=== PATIENT | male | born 1940 | race Caucasian/White ===

== ENCOUNTER 2018-04-10 12:19 | Emergency (ER) | payer OTHER ==
[2018-04-10] MEDS ORDERED: fentaNYL 100 MCG/2 ML INJ IVP ONE ×2 (12:39)
--- NOTE | 2018-04-10 13:13 | EDPHY ---
General - History Smoking Status: Never smoked Time Seen by Provider: 04/10/18 12:21 Narrative: CLINICAL IMPRESSION: Closed right comminuted displaced angulated distal femur fracture ASSESSMENT/PLAN: 77-year-old male presents to the emergency department by ambulance after a ground level fall while walking on the sidewalk. Patient presents to the ED complaining only of right knee pain. He has no reproducible pain to palpation of the right hip, proximal femur, proximal tib-fib, right ankle or foot. Distal neurovascular exams are intact. Patient has had a prior ORIF of a right tibial plateau fracture 2 years ago and has had outpatient follow-up with [facility]. He has no other complaints of pain or injury and reports no closed head injury. X-ray confirms a closed right comminuted displaced angulated distal right femur fracture. I spoke with [facility] as well as [facility] and shared images with their service. Patient was stabilized in the ED, had no complaints of pain on reassessment, and had a femoral nerve block placed by Dr. Rashid. He was able to fully extend the leg after adequate analgesics and a straight leg knee brace was applied. [facility] has accepted this patient in transfer to [facility] for direct admit and probable ORIF of femur fracture later today or 1st thing tomorrow. Patient was kept NPO. Baseline labs obtained. Transfer arranged by [facility] and appropriate EMTALA forms completed. Discussed with Dr. Rashid. DIFFERENTIAL DX: Differential includes but not limited to acute fracture, strain/sprain, joint dislocation, soft tissue contusion ED PROCEDURES: Femoral nerve block placed by Dr. Rashid, please see his procedure note Procedure: Splint placement. A straight leg knee brace right leg at position of comfort by technology administrator, supervised by myself. After application of the splint I returned and re- examined the patient. The splint was adequately immobilizing the joint and distal to the splint the patient's circulation and sensation was intact. ED COURSE: 1:00 p.m.: X-rays reviewed by myself. Patient has an obvious displaced angulated distal femur fracture. Neurovascular exam remains intact. 1:05 p.m.: Discussed with [facility]. Patient has seen Dr. Akhtar with Orthopedics there in the past. He has had prior ORIF of a tibial plateau fracture on the right performed in [place]. Discussed with Dr. Paulson at [facility]. He will discussed with [facility] and call me back 1:45 p.m.: Images of patient's x-rays sent to [facility]. Awaiting call back. 1:50: pm. Call back from [facility]. Patient will need ORIF. They recommend transfer to [facility]. Patient's is very hesitant against transfer given that she is also caring for an elderly family member here. Patient however is pain-free and stable for transfer. has agreed to transfer. Femoral nerve block placed by Dr. Rashid. Patient will be placed in posterior long-leg splint in position of comfort. ACLS transport arranged by [facility]. Appropriate EMTALA forms completed. Patient is [facility]. CHIEF COMPLAINT: Right knee pain HPI: 77-year-old male with no significant reported medical history presents to the emergency department with acute right knee pain. Patient states he was getting ready to go out for a walk, slipped on the sidewalk and fell on the outer aspect of the right knee. He has had a prior ORIF to the right knee secondary to a tibial plateau fracture sustained while skiing in [place] 2 years ago. His outpatient follow-up care was done through Dr. Akhtar at [facility]. He reports no lower leg, ankle or hip pain. No reports of numbness or loss of sensation to the leg. He did not hit his head. He denies any other injury. He is not anticoagulated. He had a muffin at 11:30 a.m. This morning but has otherwise not had anything to eat or drink. PAST MEDICAL HISTORY: Prior ORIF right tibial plateau fracture, hyperlipidemia Pertinent Past Surgical History: Prior orthopedic surgery Social History: Here with his , Pete patient REVIEW OF SYSTEMS: All other systems negative Constitutional: No fever, no chills Musculoskeletal: No deformity, + joint pain Skin: No rashes, color change or open wounds. Neurological: No sensory loss or weakness. No headache PHYSICAL EXAM: General Appearance: Alert, oriented, appropriate for age, cooperative, non- toxic appearing, VSS, no hypoxia. Appears uncomfortable, laying on his left side on the EMS gurney, c/o right knee pain Neurological: Alert and oriented x 3, normal sensation of extremities, no focal neurological deficits. No palpable scalp deformity, contusion or step- off. No hemotympanum, Nicholas sign or suggestion basilar skull fracture. Skin: Warm, dry, no rashes, no nodules on palpation. Musculoskeletal: Reproducible pain to the lateral aspect of the right knee. Pain with attempts to fully extend the knee. No reproducible pain along the greater trochanter, right tib-fib, right ankle or foot. Distal neurovascular exam is intact. No open wounds. No other injuries to extremities appreciated. No reproducible midline C-spine, thoracic or lumbar back pain. Cardiac: Regular rate and rhythm, no arrhythmia Respiratory: Lung sounds clear bilaterally, no wheezing rhonchi or rales. No chest wall tenderness or rib pain to palpation. MEDICAL DECISION MAKING: Patient was seen independently. Secondary supervising physician at time of evaluation was Dr. Rashid . Diagnosis: Closed, comminuted, angulated, displaced right distal femur fracture. New, requires workup Summary: See assessment and plan for summary of ED visit Independent visualization of images, tracing, or specimens yes. Decision to obtain medical records or history from someone other than the patient: Patient's white Review / Summarize previous medical records: None available Discussed patient with another provider: [facility], [facility] Patient Progress: Stable . (Kobe Cunha) Procedures: Nerve block: I performed a right femoral nerve bundle block with ultrasound guidance. 12 cc of 1% lidocaine instilled. No complications observed, no bleeding. Procedure performed by me. (Chinmay Rashid) - Objective Vital Signs: Initial Vital Signs Heart Rate 59 L 04/10/18 12:29 Respiratory Rate 18 04/10/18 12:29 Blood Pressure 178/84 H 04/10/18 12:29 O2 Sat (%) 94 04/10/18 12:29 O2 Delivery Mode Nasal Cannula O2 (L/minute) 2 Allergies/Adverse Reactions: No Known Allergies Allergy (Unverified 04/10/18 12:35) Home Medications: Medication Instructions Recorded Lipitor 04/10/18 Laboratory Results: Laboratory Results 04/10/18 12:35 04/10/18 12:35 Medications Given: Discontinued Medications Fentanyl (Sublimaze) 100 mcg IVP EDNOW ONE Stop: 04/10/18 12:40 Last Admin: 04/10/18 12:44 Dose: 100 mcg Fentanyl (Sublimaze) 50 mcg IVP EDNOW ONE Stop: 04/10/18 12:40 Last Admin: 04/10/18 13:46 Dose: Not Given Hydromorphone HCl (Dilaudid) 0.5 mg IVP EDNOW ONE Stop: 04/10/18 13:21 Last Admin: 04/10/18 13:34 Dose: 0.5 mg Departure - Departure [facility] Clinical Impression: Femur fracture, right Condition: Good Referrals: Patient,NotPresent [Unknown] - As per Instructions
[2018-04-10] MEDS ORDERED: HYDROmorphONE/DILAUDID 2 MG/ML INJ IVP ONE (13:20)
[2018-04-10 13:44] LABS: PLATELET COUNT 194 10^3/uL (150-400)
[2018-04-10 13:54] LABS: INR 0.97 (0.83-1.16); PROTIME(PATIENT) 13.1 SEC (12.0-15.0)
[2018-04-10] MEDS ORDERED: NS 500 ML IV ONE (14:12)
[2018-04-10 14:41] VITALS: BP 166/92
== END 2018-04-10 14:51 | disposition short-term general hospital (02) ==
LOC: EDUNIT#
DX: S72.401A Unspecified fracture of lower end of right femur, initial encounter for closed fracture (principal); E86.9 Volume depletion, unspecified; W19.XXXA Unspecified fall, initial encounter; Y92.89 Other specified places as the place of occurrence of the external cause; Y93.9 Activity, unspecified; Y99.9 Unspecified external cause status
CPT/HCPCS: 73560; 96374; 96375; 99285; J1170; J3010